=== PATIENT | female | born 1940 | race Two or more races ===

== ENCOUNTER 2024-12-07 12:49 | Outpatient (REF) | payer MEDICARE, MEDICAID, SELFPAY ==
--- OUTSIDE RECORDS SUMMARY | 2023-06-25 09:40 | XMS_ITS ---
Author Organization The [facility] in [place] Address [address] [place] [address] Care Team Providers Care Space Systems Operations Craftsman Name Role Phone Lizzie RUEDA, Jesse Primary Care Provid er Dae Renny Hatch Dae [phone] REASON FOR VISIT 4 wk ov, Chronic Kidney Disease, Stage 3b Encounters Encounter Location Date Provider Diagnosis [facility] [place] [address] [facility] [address] [place] [address] 06/25/2023 Renny Hatch Plan Of Treatment No Information Progress Notes * Carlee MOSER LDOB: 8 (84 yo F)Acc No.[id number]:06/25/2023 UNLOCKED PROGRESS NOTE Progress Note Patient: Carlee MART Provider: Patricia Hatch MD :1940 A ge:83 Y S ex:Female Date:06/25/2023 Address:[address] [place], [place] [id number] Pcp:Jesse Samuel MD Subjective: * Chief Complaints: * 1 . 4 wk ov. 2. Chronic Kidney Disease, Stage 3b. * HPI: G eneral: Last Visit: Hx obtained from the patient and her ECF records. Pt has trouble in her recall and is relatively poor historian. History: [facility] Pt reports rash on upper body and arms for 6 months, Pt reorts this rash is itching. Pt noted she does not have a PCP. Pt noted physician has not seen her in ECF for quite some time. PMH reviewed and added to medical records. Per records from ECF pt was sent by AGENCY MANAGER for [facility] of 1.3 and SK of 3.2. eGFR 39 ml/min. Last president of [facility] pt could recall is Darryl . Pt could not recall 03/17 event. Location: Kidneys Quality: Medical Kidney Disease Duration: Recently dxed Severity: Moderate Timing: On-going Known aggravating factors: Not known to patient Known relieving factors: Not known to patient Other: related problems Hx of NSAIDS: None Hx of Renal Stones: None Hx of Proteinuria: Not known to patient Hx of Hematuria: Not known to patient FH of kidney disease: None Chronic (current) Diseases Hx: See PMH/Reviewed/Updated. * Medical History: Objective: * Vitals: Assessment: Plan: * Treatment: * * Electronic signature of Renny Hatch MD, [id number] on 12/07/2024 at 12:54 PM EDT Sign off status: Pending Visit Status: R /S (Rescheduled) * Provider: Patricia Hatch MD Date: 1 08/26/2022 Generated for Denise bellamy/Chuckie/eTransmitting on: 0 12/07/2024 12:54 PM EDT
--- OUTSIDE RECORDS SUMMARY | 2023-08-27 10:20 | XMS_ITS ---
Author Organization [facility] in [place] Address [address] [place] [address] Care Team Providers Care Jigger Artisan Name Role Phone Lizzie RUEDA, Jesse Primary Care Provid er Unavailable Renny Hatch Unavailable [phone] REASON FOR VISIT 4 mo ov, Chronic Kidney Disease, Stage 3b Medications Medication SIG (Take, Route, Frequency, Duration) Notes Start Date End Date Status Famotidine 10 MG 1 tablet as needed Orally Twice a day Active Acetaminophen 325 MG 1 tablet as needed Orally every 4 hrs Active Aricept 10 MG 1 tablet at bedtime Orally Once a day for 30 day(s) Active amLODIPine Besylate 5 MG 1 tablet Orally Once a day for 30 day(s) Active Benzonatate 100 MG 1 capsule as needed Orally Three times a day Not-Taking hydrOXYzine HCl 25 MG 1 tablet as needed Orally BID Active Metoprolol Tartrate 25 MG 1 tablet with food Orally Twice a day for 30 day(s) Active Arnuity Ellipta 100 MCG/ACT 1 puff Inhalation Once a day Active fluvoxaMINE Maleate 50 MG 1 tablet at be dtime Orally BID Active Spironolactone 25 MG 1 tablet Orally for 30 day(s) Active Ondansetron HCl 4 MG 1 tablet Orally Onc e a day for 30 day(s) Active Saline Nasal Dundee 0.65 % as directed Nasally Active Robitussin DM 100-10 MG/5ML 10 mL as needed Orally every 4 hrs Not-Taking Ventolin HFA 108 (90 Base) MCG/ACT 1 puff as needed Inhalation every 4 hrs Active Senna 8.6 MG 2 tablets at bedtime as needed Orally Once a day for 30 day(s) Active Potassium Chloride ER 10 MEQ 1 tablet with food Orally Twice a day for 30 day(s) Active MiraLax 17 GM 1 packet mixed with 8 ounces of fluid Orally Once a day for 30 day(s) Active Melatonin 3 MG 1 capsule at bedtime as needed Orally Once a day for 30 day(s) Active Nitroglycerin 0.4 MG as directed Sublingual Active Mirtazapine 15 MG 1 tablet at bedtime Orally Once a day for 30 day(s) Active Fish Oil 500 MG 1 capsule Orally Twi ce a day for 30 day(s) Active Fluticasone Furoate 100 MCG/ACT 1 puff Inhalation Once a day Not-Taking Fleet Enema - as directed Rectal Not-Taking Loratadine 10 MG 1 tablet Orally Once a day for 30 day(s) Active Furosemide 20 MG 1 tablet Orally Once a day for 30 day(s) Active Social History Tobacco Use: Social History Observation Description Date Details (start date - stop date) Former Smoker NA - NA Tobacco Use/Smoking Question Answer Notes Patient is a former smoker How long has it been since you last smoked? > 10 years Section Notes: Pt reports she smoked one pa ck per week for several years and has quit several years ago Problems Problem Type SNOMED Code ICD Code Onset Dates Problem Status W/U Status Risk Notes Problem 31212875 Essential (primary) hypertension (I10) Active confirmed Problem 352826547 Paroxysmal atria l fibrillation (I48.0) Active confirmed Problem 571118840 Localized edema (R60.0) Active confirmed Vital Signs Weight 159 lb 8 oz lbs 08/27/2023 Height 5 ft 1 in in 08/27/2023 Blood pressure systolic 137 mm Hg 08/27/19 24 Blood pressure diastolic 79 mm Hg 024 Heart Rate 60 /min 08/27/2023 BMI 30.13 kg/m2 08/27/2023 Encounters Encounter Location Date Provider Diagnosis [facility] Nephrology [place] [address] [address] 08/27/2023 Renny Hatch Chronic kidney disease, stage 3b N18.32 ; Essential (primary) hypertension I10 ; Paroxysmal atrial fibrillation I48.0 and Localized edema R60.0 Assessments Encounter Date Diagnosis (ICD Code) Assessment Notes Treatment Notes Treatment Clinical Notes Section Notes 08/27/2023 Chronic kidney disease, stage 3b (ICD-10 - N18.32) 83 yo F with stable CKD 3b related to htn and cardiorenal factors Continue lasix and aldactone for volume control Continue daily KCl supplement BP today is controlled Continue metoprolol for rate control Continue Eliquis for CVA prevention Avoid NSAIDs and IV contrast Electrolytes and CBC are OK Check vit D level before her next visit, PTH is elevated with normal Ca and phos levels 08/27/2023 Essential (primary) hypertension (ICD-10 - I10) 08/27/2023 Paroxysmal atrial fibrillation (ICD-10 - I48.0) 08/27/2023 Localized edema (ICD-10 - R60.0) Plan Of Treatment Next Appt Details Follow Up: 6 Months, Reason: Progress Notes * ANNITA Carlee LDOB: (83 yo F)Acc No.[id number]:08/27/2023 Progress Note Patient: Carlee Donnelly Provider: Patricia Hatch MD :1940 A ge:83 Y S ex:Female Date:08/27/2023 Address:[address] [place] [address] Pcp:Anaya harp MD Check In:02:11 PM ESTCheck O ut:02:47 PM EST Subjective: * Chief Complaints: * 4 mo ovChronic Kidney Disease, Stage 3b * HPI: G eneral: 83 yo F with CKD 3b, here for office follow up. She has missed multiple appointments, last visit was in February, her new patient visit. Most recent Cr was in the CKD 3b range at 1.6, electrolytes were normal. Urine studies show mild albuminuria near 50 mg/g of Cr, no M-spike, and no hematuria. Her Hgb is good at 14.6, normal WBCs. Her PTH was elevated at 166, no recent vit D level available for review. Her renal US did not show any stones, hydronephrosis, or solid renal lesions. She follows with cardiology for her Afib, on lasix and spironolactone. * ROS: G eneral/Constitutional: Recent weight loss d enies. C hange in appetite d enies. C ardiovascular: PND d enies. O rthopnea d enies. S welling of legs, ankles, or feet a dmits. C hest pain d enies. S hortness of breath a dmits. G astrointestinal: Abdominal pain d enies. N ausea d enies. V omiting d enies. G enitourinary: Nocturia d enies. U rinary incontinence d enies. F requent UTI's d enies. R enal Colic ?denies. W eakstream d enies. D ysuria d enies . H ematuria d enies.?Blood in urine d enies. F requent urination d enies. M usculoskeletal: Joint stiffness d enies. W eakness d enies. ? N eurologic: Dizziness d enies. F ainting d enies. H eadache?denies. T ingling/Numbness d enies. * Active Problem List N18.9 Chronic kidney disea se Modified On:02/10/2023U Status:confirmed N18.32 Chronic kidney disea se, stage 3b Modified On:08/27/2023/U Status:confirmed I10 Essential (primary) hypertension Modified On:08/27/2023/U Status:confirmed I48.0 Paroxysmal atrial fi brillation Modified On:08/27/2023/U Status:confirmed R60.0 Localized edema Modified On:08/27/2023U Status:confirmed * Medical History: * Surgical History: B ack Surgery * Hospitalization/Major Diagno stic Procedure: N o Hospitalization History. * Family History: S ister(s): . F ather: diagnosed with Heart Disease. M other: diagnosed with Heart Disease. Pt had 3 pregnancies from her 1st marriage- 3 stillbirths Pt had 3 kids from her 2nd marriage. * Social History: T obacco Use: T obacco Use/Smoking P atsiddharth is a f ormer smoker, H ow long has it been since you last smoked? > 10 years. P t reports she smoked one pack per week for several years and has quit several years ago. * Medications: T akingAcetaminophen 325 MG Tablet 1 tablet as needed Orally every 4 hrsamLODIPine Besylate 5 MG Tablet 1 tablet Orally Once a dayAricept(Donepezil HCl) 10 MG Tablet 1 tablet at bedtime Orally Once a dayArnuity Ellipta(Fluticasone Furoate) 100 MCG/ACT Aerosol Powder Breath Activated 1 puff Inhalation Once a dayFamotidine 10 MG Tablet 1 tablet as needed Orally Twice a dayFish Oil 500 MG Capsule 1 capsule Orally Twice a dayfluvoxaMINE Maleate 50 MG Tablet 1 tablet at bedtime Orally BIDFurosemide 20 MG Tablet 1 tablet Orally Once a dayhydrOXYzine HCl 25 MG Tablet 1 tablet as needed Orally BIDLoratadine 10 MG Tablet 1 tablet Orally Once a dayMelatonin 3 MG Capsule 1 capsule at bedtime as needed Orally Once a dayMetoprolol Tartrate 25 MG Tablet 1 tablet with food Orally Twice a dayMiraLax(Polyethylene Glycol 3350) 17 GM Packet 1 packet mixed with 8 ounces of fluid Orally Once a dayMirtazapine 15 MG Tablet 1 tablet at bedtime Orally Once a dayNitroglycerin 0.4 MG Tablet Sublingual as directed Sublingual Ondansetron HCl 4 MG Tablet 1 tablet Orally Once a dayPotassium Chloride ER 10 MEQ Tablet Extended Release 1 tablet with food Orally Twice a daySaline Nasal Dundee 0.65 % Solution as directed Nasally Senna 8.6 MG Tablet 2 tablets at bedtime as needed Orally Once a daySpironolactone 25 MG Tablet 1 tablet Orally Ventolin HFA(Albuterol Sulfate HFA) 108 (90 Base) MCG/ACT Aerosol Solution 1 puff as needed Inhalation every 4 hrsTaking Acetaminophen 325 MG Tablet 1 tablet as needed Orally every 4 hrsTaking amLODIPine Besylate 5 MG Tablet 1 tablet Orally Once a dayTaking Aricept(Donepezil HCl) 10 MG Tablet 1 tablet at bedtime Orally Once a dayTaking Arnuity Ellipta(Fluticasone Furoate) 100 MCG/ACT Aerosol Powder Breath Activated 1 puff Inhalation Once a dayTaking Famotidine 10 MG Tablet 1 tablet as needed Orally Twice a dayTaking Fish Oil 500 MG Capsule 1 capsule Orally Twice a dayTaking fluvoxaMINE Maleate 50 MG Tablet 1 tablet at bedtime Orally BIDTaking Furosemide 20 MG Tablet 1 tablet Orally Once a dayTaking hydrOXYzine HCl 25 MG Tablet 1 tablet as needed Orally BIDTaking Loratadine 10 MG Tablet 1 tablet Orally Once a dayTaking Melatonin 3 MG Capsule 1 capsule at bedtime as needed Orally Once a dayTaking Metoprolol Tartrate 25 MG Tablet 1 tablet with food Orally Twice a dayTaking MiraLax(Polyethylene Glycol 3350) 17 GM Packet 1 packet mixed with 8 ounces of fluid Orally Once a dayTaking Mirtazapine 15 MG Tablet 1 tablet at bedtime Orally Once a dayTaking Nitroglycerin 0.4 MG Tablet Sublingual as directed Sublingual Taking Ondansetron HCl 4 MG Tablet 1 tablet Orally Once a dayTaking Potassium Chloride ER 10 MEQ Tablet Extended Release 1 tablet with food Orally Twice a dayTaking Saline Nasal Dundee 0.65 % Solution as directed Nasally Taking Senna 8.6 MG Tablet 2 tablets at bedtime as needed Orally Once a dayTaking Spironolactone 25 MG Tablet 1 tablet Orally Taking Ventolin HFA(Albuterol Sulfate HFA) 108 (90 Base) MCG/ACT Aerosol Solution 1 puff as needed Inhalation every 4 hrsNot-Taking/PRNBenzonatate 100 MG Capsule 1 capsule as needed Orally Three times a dayFleet Enema(Sodium Phosphates) - Enema as directed Rectal Fluticasone Furoate 100 MCG/ACT Aerosol Powder Breath Activated 1 puff Inhalation Once a dayRobitussin DM 100-10 MG/5ML Syrup 10 mL as needed Orally every 4 hrsMedication List reviewed and reconciled with the patientNot- Taking/PRN Benzonatate 100 MG Capsule 1 capsule as needed Orally Three times a dayNot- Taking/PRN Fleet Enema(Sodium Phosphates) - Enema as directed Rectal Not-Taking/PRN Fluticasone Furoate 100 MCG/ACT Aerosol Powder Breath Activated 1 puff Inhalation Once a dayNot-Taking/PRN Robitussin DM 100-10 MG/5ML Syrup 10 mL as needed Orally every 4 hrsMedication List reviewed and reconciled with the patient * Allergies: n o[Allergies Verified] Objective: * Vitals: W t: 159 lb 8 oz, Ht: 5 ft 1 in, BP: 137/79 mm Hg, HR: 60 /min, BMI:30.13 Index, Ht-cm: 154.94 cm, Wt-k.35 kg. * Examination: G eneral Examinations: GENERAL APPEARANCE: a wake, alert, oriented to person, well nourished, no pallor, memory loss issues. NECK: n ormal, no carotid bruit. LUNGS: c lear to auscultation bilaterally. CHEST: n ormal. CARDIO: n ormal, regular rate and rhythm, S1, S2 normal, no rub. ABDOMEN: s oft, nontender, nondistended, normal bowel sounds present. SKIN: g ood turgor. EXTREMITIES: n o clubbing, cyanosis, mild edema. NEUROLOGIC: n o focal deficit. Assessment: * Assessment: 1. C hronic kidney disease, stage 3b - N18.32 (Primary) 2 . E ssential (primary) hypertension - I10 3 . P aroxysmal atrial fibrillation - I48.0 4 . L ocalized edema - R60.0 Plan: * Treatment: * Recommended Wellness and Pre vention Guidelines: * S tatus A lert L ast Done N ext Due A ction Taken C OMPLIANT F all Risk Assessment 0 08/27/2023 0 08/27/2024 D ocumented structured data - Fall Risk Assessment: * Procedure Codes: * Preventive Medicine: Screenings/Counseling: F ALL RISK SCREENING F all Risk Assessment: N o falls in the past year, A re you afraid of falling? N o. T OBACCO ACTION PLAN P atient counselled on the dangers of tobacco use and urged to quit. N on-Smoker. * Follow Up: 6 Months * * Sign off status: Completed Visit Status: C HK (Check Out) true * Provider: Patricia Hatch MD Date: 0 08/27/2023 Generated for Denise bellamy/Chuckie/eTransmitting on: 0 12/07/2024 12:54 PM EDT History and Physical Notes * Examination Category Sub-Category Detail Notes Category Not es General Examinations GENERAL APPEARANCE: awake, alert, oriented to person, well nourished, no pallor, memory loss issues NECK: normal, no carotid b ruit CARDIO: normal, regular rate and rhythm, S1, S2 normal, no rub CHEST: normal LUNGS: clear to auscultatio n bilaterally ABDOMEN: soft, nontender, non distended, normal bowel sounds present NEUROLOGIC: no focal deficit SKIN: good turgor EXTREMITIES: no clubbing, cyanosi s, mild edema
--- OUTSIDE RECORDS SUMMARY | 2024-03-01 09:20 | XMS_ITS ---
Author Organization [facility] in [place] Address [address] [place] [address] Care Team Providers Care Instructional Facilitator Name Role Phone Lizzie RUEDA, Jesse Primary Care Provid er Dae MamieRenny [phone] REASON FOR VISIT CKD stage 3b, HTN Encounters Encounter Location Date Provider Diagnosis [facility] Nephrology [place] [address] [place] [address] 03/01/2024 Renny Hatch Plan Of Treatment No Information Progress Notes * Carlee MOSER LDOB: 8 (84 yo F)Acc No.[id number]:03/01/2024 UNLOCKED PROGRESS NOTE Progress Note Patient: Carlee MART Provider: Patricia Hatch MD :1940 A ge:84 Y S ex:Female Date:03/01/2024 Address:[address] [place], [place] [id number] Pcp:Jesse Samuel MD Subjective: * Chief Complaints: * 1 . CKD stage 3b. 2. HTN. * HPI: G eneral: 83 yo F [...] her Afib, on lasix and spironolactone. * Medical History: Objective: * Vitals: Assessment: Plan: * Treatment: * * Electronic signature of Renny Hatch MD, [id number] on 12/07/2024 at 12:53 PM EDT Sign off status: Pending Visit Status: N /S N/C (No Show/No Charge) * Provider: Patricia Hatch MD Date: 0 03/01/2024 Generated for Denise bellamy/Chuckie/Zuleymasmitting on: 12/07/2024 12:53 PM EDT
--- OUTSIDE RECORDS SUMMARY | 2024-11-07 20:00 | XMS_ITS | Continuity of Care Document ---
Author Organization [address] [place] [address] [address] [place] [address] Care Team Providers Care Rn Imcu Name Role Phone Adriano Wagner DPM Unavailable Unavailable Allergies, Adverse Reactions, Alerts Substance Reaction Status Criticality Xdgmuln-SZW-ShN Reductase Inhibitors Acti ve No Information PENTAZOCINE HCL Active No Informati on NALOXONE HCL Active No Information gemfibrozil Active No Information sulindac Active No Information atenolol Active No Information morphine Active No Information codeine Active No Information Medications Medication Instructions Dosage Effective Dates (start - stop) Status Comments prednisone 10 mg tablet - Ac tive amlodipine 5 mg tablet - Act jessica furosemide 20 mg tablet - Ac tive Eliquis 5 mg tablet - Active mirtazapine 15 mg tablet - Active hydroxyzine HCl 10 mg tablet - Active Arnuity Ellipta 100 mcg/actuation powder for inhalation - Active ivermectin 3 mg tablet - Act jessica albuterol sulfate HFA 90 mcg/actuation aerosol inhaler - Active potassium chloride ER 20 mEq tablet,extended release TAKE 1 TABLET BY MOUTH TWICE DAILY - Active Flovent HFA 44 mcg/actuation aerosol inhaler INHALE 2 PUFFS BY MOUTH TWICE DAILY - Active citalopram 40 mg tablet TAKE 1 TABLET BY MOUTH ONCE DAILY - Active metoprolol succinate ER 25 mg tablet,extended release 24 hr TAKE 1 TABLET BY MOUTH ONCE DAILY - Active spironolactone 100 mg tablet TAKE 1 TABLET BY MOUTH ONCE DAILY - Active tizanidine 2 mg tablet TAKE 1 TABLET BY MOUTH EVERY 8 HOURS NEEDED NOT TO EXCEED 3 TABLETS IN 24 HOURS - Active sotalol 120 mg tablet TAKE 1 TABLET BY MOUTH TWICE DAILY - Active warfarin 2.5 mg tablet TAKE 1 TABLET BY MOUTH ONCE DAILY DIRECTED BY JOBST MTCeci - Active acetaminophen 325 mg tablet - Active Procedures Procedure Date DEBRIDE NAIL 1-5 Trim Dystrophic nail(s) DEBRIDE NAIL 1-5 DETERMINE REFRACTIVE STATE FIT SPECTACLES BIFOCAL EYE EXAM WITH PHOTOS COMPRE OPH EXAM EST PT 1/> DEBRIDE NAIL 1-5 DEBRIDE NAIL 1-5 COMPREHENSVE ORAL EVALUATION INTRAOR COMPLETE FILM SERIES REPLACE DENTURE TEETH COMPLT DEBRIDE NAIL 1-5 NURSING FAC CARE SUBSEQ NURSING FAC CARE SUBSEQ Vision sv frames purchases FITTING OF SPECTACLES Lens sphcyl bifocal 4.00d/.1 EYE EXAM & TREATMENT DEBRIDE NAIL 1-5 NURSING FAC CARE SUBSEQ DEBRIDE NAIL 1-5 NURSING FAC CARE SUBSEQ DEBRIDE NAIL 1-5 NURSING FAC CARE SUBSEQ Limited Oral Evaluation-Problem Focused EYE EXAM NEW PATIENT Advance Directives Directive Yes / No Effective Date File Name No Information Encounters Encounter Description Practice Location Reason(s) For Visit Diagnoses Date Provider Providers Copied on Encounter [address] [place] [address], [address], [place], [place], [id number] , [facility] Other specified peripheral vascular diseasesTinea unguiumNail dystrophy Bernard Orr [place]. Referring Provider: Roberto Carlos Ayala. [facility] [address], [place], [place], [id number] , [facility] Other specified peripheral vascular diseasesTinea unguium 5 DAWIT Srivastava. Referring Provider: Roberto Carlos Ayala. [facility] [address], [place], [place], [id number] , [facility] No Information 5 DAWIT Srivastava. [facility] [address], [place], [place], [id number] , [facility] Presbyopia 5 Ron Lawson. [address] [facility], [address], [place], [place], [id number], . [phone] [facility] [address], [place], [place], [id number] , [facility] Macular degeneration followup (chief complaint) Endothelial corneal dystrophy, bilateralStra bismic amblyopia, right eyeNexdtve age-related mclr degn, right eye, early dry stage 5 Ron Lawson. [address] [facility], [address], [place], [place], [id number], . tel:[phone] Referring Provider: Roberto Carlos Ayala. [facility] [address], [place], [place], [id number] , [facility] Other specified peripheral vascular diseasesTinea unguium 4 [place]. Referring Provider: Roberto Carlos Ayala. [facility] [address], [place], [place], [id number] , [facility] Other specified peripheral vascular diseasesTinea unguium 4 [place]. Referring Provider: Roberto Carlos Ayala. [facility] [address], [place], [place], [id number] , [facility] Encounter for dental examination and cleaning without abnormal findingsEncou nter for fitting and adjustment of dental prosthetic device 3 DAWIT Moraes. Referring Provider: Roberto Carlos Ayala. NURSING FAC CARE SUBSEQ [facility] [address], [place], [place], [id number] , [facility] Other specified peripheral vascular diseasesTinea unguium Oct- 3 Fernleyjorge alberto Chauhan. . Referring Provider: Roberto Carlos Ayala. NURSING FAC CARE SUBSEQ [facility] [address], [place], [place], [id number] , [facility] ear care exam (chief complaint) Encounter for examination of ears and hearing without abnormal findings 3 Andrew Ramires [place]. Referring Provider: Roberto Carlos Ayala. [facility] [address], [place], [place], [id number] , [facility] Presbyopia 2 Ron Lawson. [address] [facility], [address], [place], [place], [address], . tel:[phone] [facility] [address], [place], [place], [id number] , [facility] amblyopia (chief complaint) Nexdtve age-related mclr degn, right eye, early dry stageStrabism ic amblyopia, right eyeEndothelia l corneal dystrophy, bilateral 2 [place] Renny. [address] [facility], [address], [place], [place], [address], . tel:[phone] Referring Provider: Roberto Carlos Ayala. NURSING FAC CARE SUBSEQ [facility] [address], [place], [place], [id number] , [facility] Tinea unguiumOther specified peripheral vascular diseases 2 Fernley Tien. . Referring Provider: Roberto Carlos Ayala. NURSING FAC CARE SUBSEQ [facility] [address], [place], [place], [id number] , [facility] Tinea unguiumOther specified peripheral vascular diseases 2 Fernley Tein. . Referring Provider: Roberto Carlos Ayala. NURSING FAC CARE SUBSEQ [facility] [address], [place], [place], [id number] , [facility] Tinea unguiumOther specified peripheral vascular diseases 2 Fernleyjorge alberto Chauhan. . Referring Provider: Roberto Carlos Ayala. [facility] [address], [place], [place], [id number] , [facility] Encounter for dental examination and cleaning without abnormal findings 2 Javed Martinez. [address] [facility], [address], [place], [place], [address], . tel:[phone] Referring Provider: Roberto Carlos Ayala. [facility] [address], [place], [place], [id number] [facility] Blurry vision (chief complaint) Nexdtve age-related mclr degn, right eye, early dry stageStrabism ic amblyopia, right eye 2 Ron Lawson. [address] [facility], [address], [place], [place], [address], . [phone] Referring Provider: Roberto Carlos Ayala. [facility] [address], [place], [place], [id number] , [facility] No Information 2 Ron Lawson. [address] [facility], [address], [place], [place], [id number], . [phone] Family History Family Member Type Diagnosis Age At Onset No Information Payers Payer name Insurance type Covered constitution party ID Authoriza tisuzette(s) Medicare Of [place] MB [id number] [employer] [place] [id number] Medicaid [facility] [id number] Social History Type Description Quantity Date Captured Comments Alcohol Use Details Unknown Caffeine Use Details Unknown Tobacco Use Status No Information Smoking Status No Information Sex Female Chief Complaint And Reason For Visit No Information Reason For Referral Reason For Referral No Information Plan Of Treatment Date Type Action Status Goal Influenza vaccine. Due on due Goal Unhealthy drug u se screening. Due on due Goal DEXA scan. Due on due Goal Td vaccine. Due on due Goal Tdap. Due on due Goal Tobacco screening. Due on due Goal Depression screening. Due on due Goal Zoster vaccine (1st). Due on due Goal Pneumococcal vaccine. Due on due Goal Depression screening. Due on due Goal Td vaccine. Due on due Goal Tdap. Due on due Goal DEXA scan. Due on due Goal Pneumococcal vaccine. Due on due Goal Zoster vaccine (). Due on due Goal Tobacco screening. Due on due Goal Unhealthy drug u se screening. Due on due Goal Influenza vaccine. Due on due Goal Pneumococcal vaccine. Due on due Goal Td vaccine. Due on due Goal Zoster vaccine (). Due on due Goal Unhealthy drug u se screening. Due on due Goal Tdap. Due on due Goal Influenza vaccine. Due on due Goal DEXA scan. Due on due Goal Depression screening. Due on due Goal Influenza vaccine. Due on due Goal Pneumococcal vaccine. Due on due Goal Depression screening. Due on due Goal DEXA scan. Due on 5 due Goal Zoster vaccine (). Due on due Goal Unhealthy drug u se screening. Due on due Goal Tdap. Due on due Goal Td vaccine. Due on due Goal Tdap. Due on due Goal Unhealthy drug u se screening. Due on due Goal Zoster vaccine (). Due on due Goal Pneumococcal vaccine. Due on due Goal DEXA scan. Due on due Goal Influenza vaccine. Due on due Goal Td vaccine. Due on due Goal Depression screening. Due on due Goal Pneumococcal vaccine. Due on due Goal DEXA scan. Due on due Goal Zoster vaccine (). Due on due Goal Depression screening. Due on due Goal Td vaccine. Due on due Goal Unhealthy drug u se screening. Due on due Goal Influenza vaccine. Due on due Goal Tdap. Due on due Goal Pneumococcal vaccine. Due on due Goal Influenza vaccine. Due on due Goal Td vaccine. Due on due Goal DEXA scan. Due on due Goal Zoster vaccine (1st). Due on due Goal Tdap. Due on due Goal Depression screening. Due on due Goal Influenza vaccine. Due on due Goal Zoster vaccine (1st). Due on due Goal DEXA scan. Due on due Goal Depression screening. Due on due Goal Pneumococcal vaccine. Due on due Goal Td vaccine. Due on due Goal Tdap. Due on due Goal Pneumococcal vaccine. Due on due Goal DEXA scan. Due on due Goal Tdap. Due on due Goal Depression screening. Due on due Goal Zoster vaccine (1st). Due on due Goal Influenza vaccine. Due on due Goal Td vaccine. Due on due Goal Depression screening. Due on due Goal Tdap. Due on due Goal Td vaccine. Due on due Goal DEXA scan. Due on due Goal Zoster vaccine (1st). Due on due Goal Pneumococcal vaccine. Due on due Goal Influenza vaccine. Due on due Goal Influenza vaccine. Due on due Goal DEXA scan. Due on 2 due Goal Tdap. Due on due Goal Zoster vaccine (1st). Due on due Goal Td vaccine. Due on due Goal Depression screening. Due on due Goal Pneumococcal vaccine. Due on due Goal Influenza vaccine. Due on due Goal Td vaccine. Due on due Goal Depression screening. Due on due Goal Pneumococcal vaccine. Due on due Goal DEXA scan. Due on due Goal Tdap. Due on due Goal Zoster vaccine (1st). Due on due Patient Education Learning About Dental Care and Your Health Problem completed History Of Present Illness Encounter Date Complaint History Of Prese nt Illness Macular degeneration followup Th e 84 year old patient presents for evaluation of Macular degeneration followup in the right eye. mild, constant, > 6 months amblyopia The 82 year old female presents for evaluation of amblyopia in the right eye. severe, constant, > 6 months Blurry vision The 81 year old female presents for evaluation of Blurry vision in the right > left. moderate, constant, > 6 months Functional Status Date Functional Assessmen t No Information Instructions Date Instruction Additional Infor mation All of the thickened or mycotic nails described were debrided to prevent pain and infection. The nails were debrided using a rotary tool and nail nipper. Related to Tinea unguium All dystrophic nails were reduced in length as needed to prevent pain and other symptoms. Related to Nail dystrophy All of the thickened or mycotic nails described were debrided to prevent pain and infection. The nails were debrided using a rotary tool and nail nipper. Related to Tinea unguium Impression/Plan - co rneal haze, appears stable, will update glasses. Monitor Related to Endothelial corneal dystrophy, bilateral Impression/Plan - lo ngstanding and stable. 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 progression is mild. monitor Related to Nexdtve age-related mclr degn, right eye, early dry stage Follow up - Return i n 6-9 months for dilated fundus exam. All of the thickened or mycotic nails described were debrided to prevent pain and infection. The nails were debrided using a rotary tool and nail nipper. Related to Tinea unguium All of the thickened or mycotic nails described were debrided to prevent pain and infection. The nails were debrided using a rotary tool and nail nipper. Related to Tinea unguium All of the mycotic n ails described were debrided utilizing nail nippers and/or dremel in both length and thickness as needed to a tolerable level. Patient tolerated the procedure well. Related to Tinea unguium no cerumen noted beverly aterally. Follow up prn. Related to Encounter for examination of ears and hearing without abnormal findings Follow up - Return i n 6-9 months for dilated fundus exam. Impression/Plan - mi ld corneal opacities OU, will update RX, monitor for progression. Related to Endothelial corneal dystrophy, bilateral Impression/Plan - po or vision right eye, amblyopia is longstanding. 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 Related to Nexdtve age-related mclr degn, right eye, early dry stage All of the mycotic n ails described were debrided utilizing nail nippers and/or dremel in both length and thickness as needed to a tolerable level. Patient tolerated the procedure well. Related to Tinea unguium Instructed to monito r feet and legs daily for any open sores. Educated on signs and symptoms of infection and instructed to call or go to ER if present. Related to Other specified peripheral vascular diseases All of the mycotic n ails described were debrided utilizing nail nippers and/or dremel in both length and thickness as needed to a tolerable level. Patient tolerated the procedure well. Related to Tinea unguium Instructed to monito r feet and legs daily for any open sores. Educated on signs and symptoms of infection and instructed to call or go to ER if present. Related to Other specified peripheral vascular diseases All of the mycotic n ails described were debrided utilizing nail nippers and/or dremel in both length and thickness as needed to a tolerable level. Patient tolerated the procedure well. Related to Tinea unguium Instructed to monito r feet and legs daily for any open sores. Educated on signs and symptoms of infection and instructed to call or go to ER if present. Related to Other specified peripheral vascular diseases Follow up - Return i n 6-9 months for dilated fundus exam. 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 monitor Related to Nexdtve age-related mclr degn, right eye, early dry stage Assessments Type Assessment Date assessment Other specified peripheral vascu lar diseases assessment Tinea unguium assessment Nail dystrophy Patient Care Teams Name Effective Dates (start - stop) Status Members No Information
--- OUTSIDE RECORDS SUMMARY | 2024-12-07 12:53 | XMS_ITS | Patient Health Record ---
Author Organization [facility] in [place] Address [address] [place] [address] Care Team Providers Care Electronics Engineering Manager Name Role Phone Lizzie RUEDA, Jesse Primary Care Provid er Unavailable Renny Hatch Unavailable [phone] Allergies No Known Allergies Reason For Referral No Information Medications Medication SIG (Take, Route, Frequency, Duration) Notes Start Date End Date Status Arnuity Ellipta 100 MCG/ACT 1 puff Inhalation Once a day Active fluvoxaMINE Maleate 50 MG 1 tablet at be dtime Orally BID Active Acetaminophen 325 MG 1 tablet as needed Orally every 4 hrs Active Spironolactone 25 MG 1 tablet Orally for 30 day(s) Active Aricept 10 MG 1 tablet at bedtime Orally Once a day for 30 day(s) Active amLODIPine Besylate 5 MG 1 tablet Orally Once a day for 30 day(s) Active Benzonatate 100 MG 1 capsule as needed Orally Three times a day Not-Taking Fish Oil 500 MG 1 capsule Orally Twi ce a day for 30 day(s) Active Famotidine 10 MG 1 tablet as needed Orally Twice a day Active Fluticasone Furoate 100 MCG/ACT 1 puff Inhalation Once a day Not-Taking Fleet Enema - as directed Rectal Not-Taking Loratadine 10 MG 1 tablet Orally Once a day for 30 day(s) Active Furosemide 20 MG 1 tablet Orally Once a day for 30 day(s) Active MiraLax [...] Twice a day for 30 day(s) Active Ondansetron HCl 4 MG 1 tablet Orally Onc e a day for 30 day(s) Active Saline Nasal [place] 0.65 % as directed Nasally Active Robitussin DM 100-10 MG/5ML 10 mL as needed Orally every 4 hrs Not-Taking hydrOXYzine HCl 25 MG 1 tablet as needed Orally BID Active Ventolin HFA 108 (90 Base) MCG/ACT 1 puff as needed Inhalation every 4 hrs Active Metoprolol Tartrate 25 MG 1 tablet with food Orally Twice a day for 30 day(s) Active Senna 8.6 MG 2 tablets at [...] years and has quit several years ago Pt reports she smoked one pa ck per week for several years and has quit several years ago Problems Problem Type SNOMED Code ICD Code Onset Dates Problem Status W/U Status Risk Notes Problem 06087550 Essential (primary) hypertension (I10) Active confirmed Problem 697286410 Paroxysmal atria l fibrillation (I48.0) Active confirmed Problem 284419190 Localized edema (R60.0) Active confirmed Problem Chronic kidney disease (N18.9) Active confirmed Problem 430303009 Chronic kidney disease, stage 3b (N18.32) Active confirmed Plan Of Treatment Future Test Test Name Order Date UA (URINALYSIS, COMPLETE) 02/18/2023 IMMUNOFIXATION-SIEP, BLOOD (SEP,IGAM,IFI X) 02/18/2023 MICROALBUMIN with ALB/CREAT RATIO, URINE (MALB)) 02/18/2023 PTH INTACT (PARATHYROID HORMONE) 023 IMMUNOELECTROPHORESIS, RANDOM URINE (UIE P) 02/18/2023 MAGNESIUM 02/18/2023 ULTRASOUND RENAL 02/18/2023 BASIC METABOLIC PROFILE WITH GFR 023 CBC W/AUTO DIFF 02/18/2023 Insurance Providers Payer Name Payer Address Payer Phone Subscriber Number Group Number Insured Name Patient Relationship to Insured Coverage Start Date Coverage End Date [place] [address] [place] [address] [id number] Carlee Moser Self - patient is the insured 3 [place] 2ND [place] [address] [place] OF [place], [place] [id number] Carlee Moser Self - patient is the insured 8 Medical (General) History Medical History History ICD Code CHF, Chronic PPM Anxiety Depression HTN PAF Asthma Anticoagulants Peptic Ulcer Disease-Hx of Cronary Artery Disease (CAP/PCI) Surgical History Surgery Date(Month/Year) Back Surgery
--- OUTSIDE RECORDS SUMMARY | 2024-12-07 12:53 | XMS_ITS | Clinical Summary ---
Author Organization [facility] Address [address] [place] [address] Care Team Providers Care Short Order Fry Cook Name Role Phone Unavailable Primary Care Provider Unavailabl e Allergies Active Allergy Reactions Criticality Noted Date Comments Ezetimibe 02/24/2023 Other Reaction(s): vision changes Other 04/17/2017 Oxycodone-Acetaminophen 02/24/2023 Other Reaction(s): constipation Pentazocine 04/17/2017 Other Reaction(s): heart races Sulindac 04/17/2017 Medications amLODIPine (Norvasc) 5 MG tablet Take 5 mg by mouth in the morning. Active Eliquis 5 MG tablet 3 Active donepezil (Aricept) 10 MG tablet 3 Active donepezil (Aricept) 5 MG tablet 3 Active albuterol HFA 90 mcg/act inhaler 3 Active cephalexin (Keflex) 500 MG capsule 3 Active fluticasone furoate (Arnuity Ellipta) 100 MCG/ACT inhaler Inhale 1 puff in the morning. Active furosemide (Lasix) 20 MG tablet 3 Active furosemide (Lasix) 40 MG tablet take 0.5 tablet by ORAL route every day Oral Active loratadine (Claritin) 10 MG tablet Take 10 mg by mouth in the morning. Active melatonin 3 MG tablet Take by mouth at bedtime. Active mirtazapine (Remeron) 15 MG tablet 3 Active mirtazapine (Remeron) 7.5 MG tablet 3 Active omega-3 1000 MG capsule capsule Take 1 capsule by mouth in the morning and 1 capsule at noon and 1 capsule in the evening. Active potassium chloride CR (Klor-Con M10) 10 MEQ ER tablet 3 Active Docusate Sodium (DSS) 100 MG capsule Take 100 mg by mouth in the morning and 100 mg in the evening. Active triamcinolone (Kenalog) 0.1 % creamIndications :Rash and other nonspecific skin eruption Apply thin layer to affected areas on the body twice a day as needed for flares 454 g 1 3 Active ivermectin (Stromectol) 3 MG tabletIndication s:Scabies Take 5 pills all together, repeat in 1 week 10 tablet 3 Active Active Problems No known active problems Encounters Date Type Department Care Team Description 09/14/2024 Abstract [facility] [address] [place] [address] Unallocated, [place] MD Dash from Last 3 Months Family History Medical History Relation Name Comments Asthma Other Heart disease Other Hypertension Other Relation Name Status Comments Father Mother Other Social History Tobacco Use Types Packs/Day Years Used Date Smoking Tobacco: Former Cigarettes Tobacco Cessation:Counseling Given: Not Answered Alcohol Use Standard Drinks/Week Comments Never 0 (1 standard drink = 0.6 oz pur e alcohol) Comments Unknown Sex and Gender Information Value Date Recorded Sex Assigned at Not on file Legal Sex Female 6:38 PM EDT Gender Identity Not on file Sexual Orientation Not on file Last Filed Vital Signs Vital Sign Reading Time Taken Comments Blood Pressure - - Pulse - - Temperature - - Respiratory Rate - - Oxygen Saturation - - Inhaled Oxygen Concentration - - Weight 68.9 kg (152 lb) 10/24/2023 10:12 AM EDT Height 149.9 cm (4' 11 ) 10/24/2023 10:12 AM EDT Body Mass Index 30.7 10/24/2023 10:12 AM EDT Plan of Treatment Not on file Insurance [place]ARE [place]
--- OUTSIDE RECORDS SUMMARY | 2024-12-07 12:53 | XMS_ITS | Encounter Summary ---
Author Organization [employer] Address [facility] [id number] [address] [place] [address] Care Team Providers Care Manager Control Name Role Phone Roberto Carlos Ayala MD Primary Care Provider [phone] Encounter Details Date Type Department Care Team (Late st Contact Info) Description 12/25/2020 Telephone [facility] [address] [facility] [place] [address] Raffy Lomeli MD [address]. Provider retired 10/05/24 [place] [address] Social History Tobacco Use Types Packs/Day Years Used Date Smoking Tobacco: Former Smokeless Tobacco: Never Alcohol Use Standard Drinks/Week Comments No 0 (1 standard drink = 0.6 oz pur e alcohol) PHQ-2 Answer Date Recorded Total Score 3 12/29/2020 Childcare Answer Date Recorded Childcare Unknown 12/07/2018 Employment Answer Date Recorded Employment Unknown 12/07/2018 Purpose - Life Answer Date Recorded Purpose and direction in life Unknown Comments No Sex and Gender Information Value Date Recorded Sex Assigned at Not on file Legal Sex Female 11:22 AM EDT Gender Identity Not on file Sexual Orientation Not on file COVID-19 Exposure Response Date Recorded In the last month, have you been in contact with someone who was confirmed or suspected to have Coronavirus / COVID-19? No / Unsure 12/22/2020 6:28 PM EDT documented as of this encounter Miscellaneous Notes * Telephone Encounter - Raffy Lomeli MD - 12/25/2020 7:49 AM EDT Does pt need ER f/u? documented in this encounter Plan of Treatment Not on file documented as of this encounter Visit Diagnoses Not on filedocumented in this encounter Additional Health Concerns Infection Onset Date Last Indicated Resolved Time COVID-19 Rule-Out 05/10/2021 05/10/2021 05/10/2021 4:44 PM EDT COVID-19 Positive Comment:10 days post infection, here for SNF placement/asymptomatic 05/10/2021 05/16/2021 8:44 AM EST Assessment Noted Time PHQ-9 Depression Total Score: 3 09/12/19 21 3:00 PM EST A Body Mass Index follow-up plan has been documented for the patient 05/14/2019 3:17 PM EST documented as of this encounter Care Teams Manager Control Relationship Specialty Start Date End Date Roberto [place] [address] [place] [address] PCP - General Family Medicine 08/23/21 documented as of this encounter
--- OUTSIDE RECORDS SUMMARY | 2024-12-07 12:53 | XMS_ITS | Encounter Summary ---
Author Organization [facility] Address [address] [facility] [address] Care Team Providers Care Acid Tank Liner Name Role Phone Christine Aviles ELECTRICAL SYSTEMS DESIGNER Unavailable [phone] Encounter Details Date Type Department Care Team (Late st Contact Info) Description 09/14/2024 Abstract [facility] [address] [facility] [address] [place] [id number] Unallocated, Noms Provider, [address] [place], [place] [id number] Social History Tobacco Use Types Packs/Day Years Used Date Smoking Tobacco: Former Cigarettes Alcohol Use Standard Drinks/Week Comments Never 0 (1 standard drink = 0.6 oz pur e alcohol) Comments Unknown Sex and Gender Information Value Date Recorded Sex Assigned at Not on file Legal Sex Female 6:38 PM EDT Gender Identity Not on file Sexual Orientation Not on file documented as of this encounter Plan of Treatment Not on file documented as of this encounter Visit Diagnoses Not on filedocumented in this encounter Care Teams Acid Tank Liner Relationship Specialty Start Date End Date Christine Aviles, ELECTRICAL SYSTEMS DESIGNER [address] [facility] [address] [place], [place] [id number] PCP - ACO Reach 08/20/24 10/07/24 documented as of this encounter
--- OUTSIDE RECORDS SUMMARY | 2024-12-07 12:53 | XMS_ITS | Clinical Summary ---
Author Organization [employer] Address [facility] [place]-[id number] [address] [place] [address] Care Team Providers Care Demolition Expert Name Role Phone Roberto Carlos Ayala MD Primary Care Provider [phone] Allergies Active Allergy Reactions Criticality Noted Date Comments Atenolol 03/22/2015 Other reaction(s): Intolerance-unknown Sulindac 04/17/2017 Codeine 03/22/2015 Other reaction(s): Intolerance-unknown Ezetimibe 02/24/2023 Other Reaction(s): vision changes Gemfibrozil 04/17/2017 Morphine 12/05/2021 Morphine Sulfate 04/17/2017 Naloxone Hcl 12/05/2021 Other 04/17/2017 Statins other than Vytorin Oxycodone-Acetaminophen 02/24/2023 Other Reaction(s): constipation Pentazocine 04/17/2017 Other Reaction(s): heart races Oxycodone Yvt-Zkhsxrcqc-Yhz 04/17/2017 Mawgxqu-Frf-Dih Reductase Inhibitors 12/05/2021 Pentazocine Lactate 04/17/2017 Medications omega 2-qhs-bsm-fish oil (FISH OIL) 1,000 mg (120 mg-180 mg) capsule Take 1 capsule by mouth 3 (three) times a day. Active docusate sodium (COLACE) 100 mg capsule Take 1 capsule (100 mg total) by mouth in the morning and 1 capsule (100 mg total) before bedtime. Active nitroglycerin (NITROSTAT) 0.[address] 1 tablet (0.4 mg total) under the tongue every 5 (five) minutes as needed (prn). 25 tablet 3 8 Active famotidine (PEPCID) 20 mg tablet Take 1 tablet (20 mg total) by mouth 2 (two) times a day. 120 tablet 9 Active Additional Information Patient taking differently:20 mg oralDaily, Reported on 09/14/2024 VENTOLIN HFA 90 mcg/actuation inhaler INHALE 2 PUFFS BY MOUTH EVERY 6 HOURS NEEDED FOR WHEEZING 18 g 5 1 Active acetaminophen (TYLENOL) 325 mg tablet Take 2 tablets (650 mg total) by mouth every 6 (six) hours as needed for pain, headaches or fever. 30 tablet 1 Active amLODIPine (NORVASC) 5 mg tablet Take 1 tablet (5 mg total) by mouth in the morning. Active fluticasone furoate (ARNUITY ELLIPTA) 100 mcg/actuation blister with device Inhale 1 puff in the morning. Active melatonin (CIRCADIN) tablet Take by mouth nightly. Active furosemide (LASIX) 20 mg tablet Take 1 tablet (20 mg total) by mouth daily. 30 tablet 11 2 Active Additional Information Patient taking differently:20 mg oral2 times daily, Reported on 09/14/2024 apixaban (ELIQUIS) 5 mg tablet Take 1 tablet (5 mg total) by mouth in the morning and 1 tablet (5 mg total) before bedtime. Restart 02/01/22 evening dose. 2 Active donepeziL (ARICEPT) 10 mg tablet Take 1 tablet (10 mg total) by mouth nightly. 3 Active fluvoxaMINE (LUVOX) 50 mg tablet Take 1 tablet (50 mg total) by mouth in the morning and 1 tablet (50 mg total) before bedtime. 3 Active potassium chloride (KLOR-CON M 10) 10 MEQ CR tablet Take 1 tablet (10 mEq total) by mouth in the morning. 3 Active spironolactone (ALDACTONE) 25 mg tablet Take 1 tablet (25 mg total) by mouth in the morning. 3 Active mirtazapine (REMERON) 15 mg tablet Take 0.5 tablets (7.5 mg total) by mouth nightly. 3 Active polyethylene glycol (GLYCOLAX) 17 gram packet Take 17 g by mouth in the morning. Active sennosides 8.6 mg capsule Take 2 capsules by mouth in the morning and 2 capsules before bedtime. Active dapagliflozin propanediol (FARXIGA) 5 mg tablet Take 1 tablet (5 mg total) by mouth in the morning. 5 Active hydrOXYzine (ATARAX) 25 mg tablet Take 1 tablet (25 mg total) by mouth every 8 (eight) hours as needed for itching. 5 Active metoprolol tartrate (LOPRESSOR) 25 mg tablet Take 1 tablet (25 mg total) by mouth in the morning and 1 tablet (25 mg total) before bedtime. 5 Active Active Problems Problem Noted Date Diagnosed Date Depression 05/18/2021 Memory impairment 05/18/2021 COVID-19 virus infection 05/18/2021 General weakness 05/17/2021 Unable to care for self 05/17/2021 Stable angina pectoris 11/12/2018 Atypical atrial flutter 06/10/2018 Typical atrial flutter 02/04/2018 Palpitations 02/04/2018 Overview (02/04/2018): Added automatically from request for surgery [id number] Sinus node arrhythmia 02/04/2018 Overview (02/04/2018): Added automatically from request for surgery [id number] Dyspnea 02/04/2018 Overview (02/04/2018): Added automatically from request for surgery [id number] Pacemaker lead malfunction 12/17/2017 SSS (sick sinus syndrome) 12/17/2017 Overview (12/17/2017): Added automatically from request for surgery [id number] Moderate persistent asthma without complication 12/16/2017 Hypertension 11/06/2017 CHF (congestive heart failure) 10/17/2017 PUD (peptic ulcer disease) 05/09/2017 Paroxysmal atrial fibrillation 05/29/2016 keno terminal operator current use of anticoagulant therapy 1 07/29/2015 Chest pain 08/04/2015 Sinoatrial node dysfunction 10/14/2009 Presence of cardiac pacemaker [facility] 0 Status post percutaneous transluminal coronary a ngioplasty 03/10/2009 Hyperlipidemia 02/01/2006 Resolved Problems Problem Noted Date Diagnosed Date Resolved Date Severe obesity (BMI 35.0-39. 9) with comorbidity 12/08/2018 05/14/2019 Encounters Date Type Department Care Team Description 09/14/2024 9:00 AM EDT Office Visit [facility] [address] [place] [phone] Henry Malik, PRINT PRESS OPERATOR-MINERALOGY PROFESSOR Presence of cardiac pacemaker (Primary Dx); Sinoatrial node dysfunction (CMS-HCC); Paroxysmal atrial fibrillation (CMS-HCC); Atypical atrial flutter (CMS-HCC); Status post percutaneous transluminal coronary angioplasty 09/14/2024 8:30 AM EDT Clinical Support [facility] [address] [place] [address] cardiac pacemaker [facility] (Primary Dx) 09/14/2024 Orders Only [facility] [address] [place] [address] Kim Peralta Presence of cardiac pacemaker 09/14/2024 Travel 09/13/2024 Telephone [facility] [address] [place] [address] Nella Ga CMA from Last 3 Months Immunizations Immunization Administration Dates Next Due Pneumococcal Polysaccharide 09/08/2014 Family History Medical History Relation Name Comments Coronary artery disease Father Hypertension Father Asthma Mother Hypertension Mother Relation Name Status Comments Father Mother Social History Tobacco Use Types Packs/Day Years Used Date Smoking Tobacco: Former Smokeless Tobacco: Never Tobacco Cessation:Counseling Given: Not Answered Alcohol Use Standard Drinks/Week Comments No 0 [...] Sign Reading Time Taken Comments Blood Pressure 124/76 09/14/2024 8:43 AM EDT Pulse 68 09/14/2024 8:43 AM EDT Temperature 36.8 C (98.2 F) 08/23/2021 12:14 PM EST Respiratory Rate 15 01/31/2022 2:35 PM EDT Oxygen Saturation 98% 09/14/2024 8:43 AM EDT Inhaled Oxygen Concentration - - Weight 64 kg (141 lb) 09/14/2024 8:43 AM EDT Height 149.9 cm (4' 11 ) 09/14/2024 8:43 AM EDT Body Mass Index 28.48 09/14/2024 8:43 AM EDT Plan of Treatment Health Maintenance Due Date Last Done Comments Depression Screening 1950 DTaP,Tdap and Td Vaccines (1 - Tdap) 1957 Zoster (Shingles) Vaccine (1 of 2) 01/30/1988 Fall Risk Screening 2003 Influenza Vaccine 03/07/2025 Tobacco Screening 09/14/2025 09/14/2024 Goals Goal Patient Goal Type Associated Problems Recent Progress Patient-Stated? Author [facility]DC home placement. General Yes Angely Weaver LSW Note: Evaluation of progress towards goal: In progress: Skilled placement at [facility] on 05/25/21. Medical Devices Implanted Type Area Infrastructure Engineer Device Identifier Shelf Expiration Date Model / Serial / Lot Lead Pcng 52cm 6fr Ecrdm Tndrl Sts Bp Actfx Is-1 Cnct Xtd Ti - [id number] - [id number] Implanted:Qty: 1 on 01/31/2022 by Dionisio Haskins MD at [facility] Implant Lead Left: Chest [facility] MED CARDIAC RHYTHM MGT 10/04/2024 [id number] / [id number] / Pcmkr Assurity Sjm Rf Home Monitoring Repl [id number] - [id number] - [id number] Implanted:Qty: 1 on 01/20/2018 by Maldonado Bryant DO at [facility] Pacemaker Left: Chest [facility] CHANDRA MED CARDIAC RHYTHM MGT 03/06/2019 [id number] / [id number] / Pacemaker Assurity [address] [place] Home Monitoring [facility] [id number] - [id number] - [id number] Implanted:Qty: 1 on 01/31/2022 by Dionisio Haskins MD at [facility] Pacemaker Left: Chest [employer] CHANDRA MED CARDIAC RHYTHM MGT 12/04/2022 [id number] / [id number] / Procedures Procedure Name Priority Date/Time Associated Diagnosis Comments MO REM INTERROG PM/LDLS PM <90 D PHYS/QHP Routine 11/09/2024 3:00 AM EDT DEVICE INTERROGATION Routine 09/14/2024 Presence of cardiac pacemaker from Last 3 Months Results * Remote Device Check (11/09/2024 3:00 AM EDT) Anatomical Region Laterality Modality Other 11/09/2024 3:00 AM EDT Yosvany Royal MD HEALTH MAINTENANCE Final Result * Device Interrogation (09/14/2024) Anatomical Region Laterality Modality Other Henry Malik PRINT PRESS OPERATOR-MINERALOGY PROFESSOR CV CARDIAC SERVICES OR DERABLES Final Result from Last 3 Months Insurance MEDICARE [facility] [place] [id number] Advance Directives Documents on File Type Date Recorded Patient Stereotype Caster Agata pickens Living Will 12/01/2018 3:48 PM LIVING [place] Durable Power of Black Top Machine Operator 12/01/2018 3:48 PM HEALTHCARE POA * DNR Comfort Care Arrest (DNR-CCA) [place] (Latest Code Status on File) Date Activated Date Inactivated Comments 05/22/2021 4:15 PM 05/25/2021 2:24 PM * DNR Comfort Care (DNRCC) [place] Date Activated Date Inactivated Comments 05/22/2021 4:12 PM 05/22/2021 4:15 PM * Full Code Date Activated Date Inactivated Comments 05/21/2021 8:04 AM 05/22/2021 4:12 PM * Full Code Date Activated Date Inactivated Comments 01/20/2018 12:15 PM 01/20/2018 6:05 PM Care Teams Demolition Expert Relationship Specialty Start Date End Date Roberto Carlos [place] [address] [place] [address] PCP - General Family Medicine 08/23/21
--- OUTSIDE RECORDS SUMMARY | 2024-12-07 12:53 | XMS_ITS | Encounter Summary ---
Author Organization [employer] Address [facility] [place]-[id number] [address] [place] [address] Care Team Providers Care Design Cell Engineer Name Role Phone Roberto Carlos Ayala MD Primary Care Provider [phone] Reason for Visit * Reason Onset Date Comments Med Refill 11/17/2020 Encounter Details Date Type Department Care Team (Late st Contact Info) Description 11/17/2020 Refill [facility] [address] [place] [phone] Marilou Gautam, JUHI Med Refill Social History Tobacco Use Types Packs/Day Years Used Date Smoking Tobacco: Former Smokeless Tobacco: Never Alcohol Use Standard Drinks/Week Comments No 0 (1 standard drink = 0.6 oz pur e alcohol) PHQ-2 Answer Date Recorded Total Score 3 09/11/2020 Childcare Answer Date Recorded Childcare Unknown 12/07/2018 [...] have Coronavirus / COVID-19? No / Unsure 11/20/2020 2:30 PM EDT documented as of this encounter Miscellaneous Notes * Telephone Encounter - HILDA Sam - 11/17/2020 9:54 AM EDT Needs mag and updated EKG documented in this encounter Plan of Treatment [...] documented as of this encounter Care Teams Design Cell Engineer Relationship Specialty Start Date End Date Roberto Carlos Ayala MD [facility] [place] [address] [address] PCP - General Family Medicine 08/23/21 documented as of this encounter
--- OUTSIDE RECORDS SUMMARY | 2024-12-07 12:53 | XMS_ITS | Encounter Summary ---
Author Organization [facility] Address [address] [facility] [place] [address] Care Team Providers Care Photocomposing Keyboard Operator Name Role Phone Christine Aviles CHOCOLATE COATER Unavailable [phone] Christine Aviles CHOCOLATE COATER Unavailable [phone] Christine Aviles CHOCOLATE COATER Unavailable [phone] Encounter Details Date Type Department Care Team (Late st Contact Info) Description 06/04/2023 Abstract [facility] [address] [facility] [address] [place] [phone] Roberto Carlos Ayala MD [address] [facility] [address] [place] [address] Social History Tobacco Use Types Packs/Day Years [...] on filedocumented in this encounter Care Teams Photocomposing Keyboard Operator Relationship Specialty Start Date End Date Christine Aviles CHOCOLATE COATER [address] [facility] [address] [place] [address] PCP - ACO Reach 04/05/23 09/04/23 Christine Aviles CHOCOLATE COATER [address] [facility] [address] [place] [address] PCP - ACO Reach 11/05/23 08/12/24 Christine Aviles, SAMI [address] [place] [address] PCP - ACO Reach 08/20/24 10/07/24 documented as of this encounter
--- OUTSIDE RECORDS SUMMARY | 2024-12-07 12:54 | XMS_ITS | Encounter Summary ---
Author Organization [facility] Address [facility] [place]-[id number] [address] [place] [address] Care Team Providers Care Nanny/Household Manager Name Role Phone Roberto Carlos Ayala MD Primary Care Provider [phone] Encounter Details Date Type Department Care Team (Late st Contact Info) Description 04/18/2021 Orders Only [facility] [address] [place] [phone] External, Scanning Provider Social History Tobacco Use Types Packs/Day Years [...] have Coronavirus / COVID-19? No / Unsure 04/18/2021 10:06 AM EDT documented as of this encounter Plan of Treatment Not on file documented as of this encounter Procedures Procedure Name Priority Date/Time Associated Diagnosis Comments DEVICE INTERROGATION Routine 04/18/2021 documented in this encounter Results * Device Interrogation (04/18/2021) Anatomical Region Laterality Modality Other us Scanning Provider External CV CARDIAC SERVICES O RDERABLES Final Result documented in this encounter Visit Diagnoses Not on filedocumented in this encounter Additional Health Concerns Infection Onset Date Last Indicated Resolved Time COVID-19 Rule-Out 05/10/2021 05/10/2021 05/10/2021 4:44 PM EDT COVID-19 Positive Comment:10 days post infection, here for SNF placement/asymptomatic 05/10/2021 05/16/2021 8:44 AM EST Assessment Noted Time PHQ-9 Depression Total Score: 3 12/30/19 21 4:00 PM EDT A Body Mass Index follow-up plan has been documented for the patient 05/14/2019 3:17 PM EST documented as of this encounter Care Teams Nanny/Household Manager Relationship Specialty Start Date End Date Roberto Carlos Ayala MD [facility] [place] [address] PCP - General Family Medicine 08/23/21 documented as of this encounter
--- OUTSIDE RECORDS SUMMARY | 2024-12-07 12:54 | XMS_ITS | Encounter Summary ---
Author Organization [employer] Address [facility]-[id number] [address] [place] [address] Care Team Providers Care Tieing Machine Operator Name Role Phone Roberto Carlos Ayala MD Primary Care Provider Encounter Details Date Type Department Care Team (Late st Contact Info) Description 05/15/2021 Telephone [facility] [address] [facility] [place] [address] Raffy Lomeli MD [address]. Provider retired 10/05/24 [place] [address] Social History Tobacco Use Types Packs/Day Years [...] or suspected to have Coronavirus / COVID-19? Yes 05/18/2021 8:37 PM EST documented as of this encounter Functional Status documented as of this encounter Mental Status * Question Answer Entry Date Author Overall Cognitive Status X 05/17/2021 11:46 AM EST Makeda Rangel, PT documented in this encounter Miscellaneous Notes * Telephone Encounter - Raffy Lomeli MD - 05/15/2021 7:34 AM EST Pt with denial of HH due to lack of facedoes she wish to move appt up 05/22? documented in this encounter Plan of Treatment Not on file documented as of this encounter Visit Diagnoses Not on filedocumented in this encounter Additional Health Concerns Infection Onset Date Last Indicated Resolved Time COVID-19 Positive Comment:10 days post infection, here for SNF placement/asymptomatic 05/10/2021 05/16/2021 8:44 AM EST Assessment Noted Time PHQ-9 Depression Total Score: 3 12/30/19 21 4:00 PM EDT A Body Mass Index follow-up plan has been documented for the patient 05/14/2019 3:17 PM EST documented as of this encounter Care Teams Tieing Machine Operator Relationship Specialty Start Date End Date Roberto [place] [address] PCP - General Family Medicine 08/23/21 documented as of this encounter
--- OUTSIDE RECORDS SUMMARY | 2024-12-07 12:54 | XMS_ITS | Encounter Summary ---
Author Organization [facility] Address [facility] [place]-[id number] [address] [place] [address] Care Team Providers Care Plant Wire Chief Name Role Phone Roberto Carlos Ayala MD Primary Care Provider [phone] Encounter Details Date Type Department Care Team (Late st Contact Info) Description 04/04/2021 [facility]phone [facility] [address] [place] [phone] Delvin Caballero CNA Social History Tobacco Use Types Packs/Day Years [...] have Coronavirus / COVID-19? No / Unsure 03/26/2021 8:19 PM EDT documented as of this encounter Miscellaneous Notes * Telephone Encounter - Delvin Caballero CMA - 04/04/2021 1:44 PM EDT Patient calling requesting order for home health. Patient is unable to come into the office due to lack of transportation, but she feels she needs a nurse to come in. I told her I cannot promise homehealth will be able to see her without a face-face visit but she still wants to try to see if she can try it. Can you please put referral in for home health? If this does not work we can talk to Tori to see what other options we can try * Telephone Encounter - Raffy Lomeli MD - 04/04/2021 1:44 PM EDT Order in documented in this encounter Plan of Treatment Not on file documented as of this encounter Visit Diagnoses Diagnosis Chronic systolic congestive heart failure (CMS-HCC)- Primary Other depression documented in this encounter Additional Health Concerns Infection [...] documented as of this encounter Care Teams Plant Wire Chief Relationship Specialty Start Date End Date [place] [address] [place] [address] PCP - General Family Medicine 08/23/21 documented as of this encounter
--- OUTSIDE RECORDS SUMMARY | 2024-12-07 12:54 | XMS_ITS | Encounter Summary ---
Author Organization [facility] Address [facility] [place]-[id number] [address] [place] [address] Care Team Providers Care Clinical Psychologist Name Role Phone Roberto Carlos Ayala MD Primary Care Provider Reason for Visit * Reason Comments Med Refill Encounter Details Date Type Department Care Team (Late st Contact Info) Description 03/19/2021 Refill [facility] [address] [facility] [place] [phone] Deidre Bejarano, TOP CLOSER-ACCREDITATION MANAGER [address] [place] [address] Med Refill Social History Tobacco Use Types [...] have Coronavirus / COVID-19? No / Unsure 02/23/2021 2:33 PM EDT documented as of this encounter Miscellaneous Notes * Telephone Encounter - Kinza You LPN - 03/19/2021 3:03 PM EDT Pt needs to make and keep appointment, 02/24 misty pt no showed documented in this encounter Plan of Treatment [...] documented as of this encounter Care Teams Clinical Psychologist Relationship Specialty Start Date End Date Roberto [place] [address] [place] [address] PCP - General Family Medicine 08/23/21 documented as of this encounter
--- OUTSIDE RECORDS SUMMARY | 2024-12-07 12:54 | XMS_ITS | Encounter Summary ---
Author Organization [facility] [employer] [facility] [employer] Address [facility] [place]-[id number] [address] [place] [address] Care Team Providers Care Cigar Wrapper Tender Automatic Name Role Phone Roberto Carlos Ayala MD Primary Care Provider [phone] Encounter Details Date Type Department Care Team (Late st Contact Info) Description 05/11/2020 Orders Only [facility] [address] [place] [phone] External, Scanning Provider Social History Tobacco Use Types Packs/Day Years Used Date Smoking Tobacco: Former Smokeless Tobacco: Never Alcohol Use Standard Drinks/Week Comments No 0 (1 standard drink = 0.6 oz pur e alcohol) PHQ-2 Answer Date Recorded PHQ-2 Score 2 03/10/2020 Childcare Answer Date Recorded Childcare Unknown 12/07/2018 Employment Answer Date Recorded Employment Unknown 12/07/2018 Comments No Sex and Gender Information Value Date Recorded Sex Assigned at Not on file Legal Sex Female 11:22 AM EDT Gender Identity Not on file Sexual Orientation Not on file COVID-19 Exposure Response Date Recorded In the last month, have you been in contact with someone who was confirmed or suspected to have Coronavirus / COVID-19? No / Unsure 05/10/2020 10:17 AM EST documented as of this encounter Plan of Treatment Not on file documented as of this encounter Procedures Procedure Name Priority Date/Time Associated Diagnosis Comments DEVICE INTERROGATION Routine 05/10/2020 documented in this encounter Results * Device Interrogation (05/10/2020) Anatomical Region Laterality Modality Other us Scanning Provider External CV CARDIAC SERVICES O RDERABLES Final Result documented in this encounter Visit Diagnoses Not on filedocumented in this encounter Additional Health Concerns Infection Onset Date Last Indicated Resolved Time COVID-19 Rule-Out 08/18/2020 08/18/2020 08/19/2020 1:25 AM EST COVID-19 Rule-Out 05/10/2021 05/10/2021 05/10/2021 4:44 PM EDT COVID-19 Positive Comment:10 days post infection, here for SNF placement/asymptomatic 05/10/2021 05/16/2021 8:44 AM EST Assessment Noted Time PHQ-9 Depression Total Score: 2 03/10/20 4:00 PM EDT A Body Mass Index follow-up plan has been documented for the patient 05/14/2019 3:17 PM EST documented as of this encounter Care Teams Cigar Wrapper Tender Automatic Relationship Specialty Start Date End Date Roberto [place] [address] [place] [address] PCP - General Family Medicine 08/23/21 documented as of this encounter
--- OUTSIDE RECORDS SUMMARY | 2024-12-07 12:54 | XMS_ITS | Encounter Summary ---
Author Organization [employer] Address [facility] [id number] [address] [place] [address] Care Team Providers Care Equity Sales Assistant Name Role Phone Roberto Carlos Ayala MD Primary Care Provider [phone] Encounter Details Date Type Department Care Team (Late st Contact Info) Description 11/01/2021 Orders Only [facility] [address] [facility] [address] [phone] External, Scanning Provider Social History Tobacco Use [...] Exposure Response Date Recorded In the last 10 days, have yo u been in contact with someone who was confirmed or suspected to have Coronavirus/COVID-19? No / Unsure 10/31/2021 2:39 PM EDT documented as of this encounter Plan of Treatment Not on file documented as of this encounter Goals Goal Patient Goal Type Associated Problems Recent Progress Patient-Stated? Author long term home placement. General Yes Angely Weaver LSW Note: Evaluation of progress towards goal: In progress: Skilled placement at [facility] on 05/25/21. documented as of this encounter Procedures Procedure Name Priority Date/Time Associated Diagnosis Comments DEVICE INTERROGATION Routine 10/31/2021 documented in this encounter Results * Device Interrogation (10/31/2021) Anatomical Region Laterality Modality Other us Scanning Provider External CV CARDIAC SERVICES O RDERABLES Final Result documented in this encounter Visit Diagnoses Not on filedocumented in this encounter Additional Health Concerns Assessment Noted Time PHQ-9 Depression Total Score: 3 12/30/19 21 4:00 PM EDT A Body Mass Index follow-up plan has been documented for the patient 05/14/2019 3:17 PM EST documented as of this encounter Care Teams Equity Sales Assistant Relationship Specialty Start Date End Date Roberto [place] [address] [place] [address] PCP - General Family Medicine 08/23/21 documented as of this encounter
--- OUTSIDE RECORDS SUMMARY | 2024-12-07 12:54 | XMS_ITS | Encounter Summary ---
Author Organization [facility] [employer] Address [facility] [place][id number] [address] [place] [address] Care Team Providers Care Insert Molding Operator Name Role Phone Roberto Carlos Ayala MD Primary Care Provider [phone] Reason for Visit * Reason Comments Med Refill Encounter Details Date Type Department Care Team (Late st Contact Info) Description 05/13/2019 Refill [facility] [address] [phone] Raffy Lomeli MD [address]. Provider retired 10/05/24 [place], [place] [id number] Social History Tobacco Use Types Packs/Day Years Used Date Smoking Tobacco: Former Smokeless Tobacco: Never Alcohol Use Standard Drinks/Week Comments No 0 (1 standard drink = 0.6 oz pur e alcohol) PHQ-2 Answer Date Recorded PHQ-2 Score 0 05/14/2019 Childcare Answer Date Recorded Childcare Unknown 12/07/2018 [...] Assessment Noted Time PHQ-9 Depression Total Score: 9 11/13/19 19 4:00 PM EDT A Body Mass Index follow-up plan has been documented for the patient 11/06/2017 1:25 PM EDT documented as of this encounter Care Teams Insert Molding Operator Relationship Specialty Start Date End Date Roberto [place] [address] [place] [address] PCP - General Family Medicine 08/23/21 documented as of this encounter
--- OUTSIDE RECORDS SUMMARY | 2024-12-07 12:54 | XMS_ITS | Encounter Summary ---
Author Organization [employer] Address [facility] [place]-[id number] [address] [place] [address] Care Team Providers Care Salesperson Neckties Name Role Phone Roberto Carlos Ayala MD Primary Care Provider [phone] Encounter Details Date Type Department Care Team (Late st Contact Info) Description 12/25/2020 [facility] [address] [place] [address] Sabine Salomon CMA Social History Tobacco Use Types Packs/Day Years [...] encounter Miscellaneous Notes * Telephone Encounter - Sabine Salomon CMA - 12/25/2020 10:58 AM EDT FYI Patient called and said that she fell on Friday, injuring her shoulder. She went to urgent care andthey said that she would need to get an XRAY done at the hospital since they do not have an xray machine there. They gave her the order and she went to the hospital but waited an extremely long time and ended up leaving before she was done. She was very frustrated that she wasn't taken care of at areasonable time. I offered her an appointment for Friday since she is still having shoulder painand she declined due to being home alone and not able to take a shower. I also told her I could seeif Dr. Woodward could send in another xray as it may get done faster since it's the week day and she also declined that as well. She said she will just continue to rest her arm and will call if she needs something. documented in this encounter Plan of Treatment [...] documented as of this encounter Care Teams Salesperson Neckties Relationship Specialty Start Date End Date Roberto Carlos [place] [address] [place] [address] PCP - General Family Medicine 08/23/21 documented as of this encounter
--- OUTSIDE RECORDS SUMMARY | 2024-12-07 12:54 | XMS_ITS | Encounter Summary ---
Author Organization [employer] Sys [employer] Address [facility]-[id number] [address] [place] [address] Care Team Providers Care Pmo Consultant Name Role Phone Roberto Carlos Ayala MD Primary Care Provider [phone] Encounter Details Date Type Department Care Team (Late st Contact Info) Description 01/09/2022 Orders Only [facility] [address] [place] [address] Richi Mesa MD Social History Tobacco Use Types Packs/Day Years [...] have Coronavirus / COVID-19? No / Unsure 01/09/2022 10:04 AM EDT documented as of this encounter Plan of Treatment Not on file documented as of this encounter Goals Goal Patient Goal Type Associated Problems Recent Progress Patient-Stated? Author [facility] home placement. General Yes Angely Weaver LSW Note: Evaluation of progress towards goal: In progress: Skilled placement at [facility] on 05/25/21. documented as of this encounter Procedures Procedure Name Priority Date/Time Associated Diagnosis Comments DEVICE INTERROGATION Routine 01/09/2022 2:52 PM EDT documented in this encounter Visit Diagnoses Not on filedocumented in this encounter Additional Health Concerns Assessment Noted Time PHQ-9 Depression Total Score: 3 12/30/19 4:00 PM EDT A Body Mass Index follow-up plan has been documented for the patient 05/14/2019 3:17 PM EST documented as of this encounter Care Teams Pmo Consultant Relationship Specialty Start Date End Date Roberto [place] [address] [place] [address] PCP - General Family Medicine 08/23/21 documented as of this encounter
--- OUTSIDE RECORDS SUMMARY | 2024-12-07 12:54 | XMS_ITS | Encounter Summary ---
Author Organization [facility] [employer] [facility] Address [facility] [place]-[id number] [address] [place] [address] Care Team Providers Care Hand Carver Name Role Phone Roberto Carlos Ayala MD Primary Care Provider [phone] Encounter Details Date Type Department Care Team (Late st Contact Info) Description 05/14/2021 [facility]phone [facility] [address] [facility] [place] [place] [phone] Qiana Lindo LPN Social History Tobacco Use Types Packs/Day Years [...] suspected to have Coronavirus / COVID-19? Yes 05/17/2021 11:33 AM EST documented as of this encounter Functional Status documented as of this encounter Mental Status * Question Answer Entry Date Author Overall Cognitive Status X 05/17/2021 11:46 AM EST Makeda Rangel PT documented in this encounter Miscellaneous Notes * Telephone Encounter - Qiana Lindo LPN - 05/14/2021 3:26 PM EST Called patient at the request of Ever, patient states she cannot get out and needs help around thehouse. I told her I would ask you if there was anything you can do to help her and told her I wouldcall her tomorrow when you got in. She says she doesn't know what do do and wants to . * Telephone Encounter - Raffy Lomeli MD - 05/14/2021 3:26 PM EST We are requesting face to face appt so we can arrange home health for her, please offer to arrange documented in this encounter Plan of Treatment [...] documented as of this encounter Care Teams Hand Carver Relationship Specialty Start Date End Date Roberto Carlos Ayala MD [facility] [place] [address] PCP - General Family Medicine 08/23/21 documented as of this encounter
--- OUTSIDE RECORDS SUMMARY | 2024-12-07 12:54 | XMS_ITS | Encounter Summary ---
Author Organization [facility] Address [facility]-[id number] [address] [place] [address] Care Team Providers Care Quantitative Consultant Name Role Phone Roberto Carlos Ayala MD Primary Care Provider [phone] Reason for Visit * Reason Comments Med Refill Encounter Details Date Type Department Care Team (Late st Contact Info) Description 03/13/2020 Refill [facility] [address] [facility] [address] [place] [phone] Francisco Prabhakar, DO [address] [place] [address] Med Refill Social History Tobacco Use Types [...] have Coronavirus / COVID-19? No / Unsure 03/16/2020 12:32 PM EDT documented as of this encounter [...] Time PHQ-9 Depression Total Score: 2 03/10/20 20 4:00 PM EDT A Body Mass Index follow-up plan has been documented for the patient 05/14/2019 3:17 PM EST documented as of this encounter Care Teams Quantitative Consultant Relationship Specialty Start Date End Date Roberto Carlos Ayala MD [facility] [place] [address] PCP - General Family Medicine 08/23/21 documented as of this encounter
--- OUTSIDE RECORDS SUMMARY | 2024-12-07 12:54 | XMS_ITS | Encounter Summary ---
Author Organization [employer] Address [facility] [place]-[id number] [address] [place] [address] Care Team Providers Care Gm Name Role Phone Roberto Carlos Ayala MD Primary Care Provider [phone] Encounter Details Date Type Department Care Team (Late st Contact Info) Description 08/23/2021 Telephone [facility] [address] [place] [address] Destiny Farah, JUHI Social History Tobacco Use Types Packs/Day Years [...] have Coronavirus / COVID-19? No / Unsure 08/23/2021 11:11 AM EST documented as of this encounter Miscellaneous Notes * Telephone Encounter - Destiny Farah RN - 08/23/2021 1:10 PM EST ----- Message from Dionisio Haskins MD sent at 08/23/2021 1:07 PM EST ----- Please schedule this patient for RV with me and device check at [facility] in 3 months - thx! documented in this encounter Plan of Treatment Not on file documented as of this encounter Goals Goal Patient Goal Type Associated Problems Recent Progress Patient-Stated? Author group home home placement. General Yes Angely Weaver LSW Note: Evaluation of progress towards goal: In progress: Skilled placement at [facility] on 05/25/21. documented as of this encounter Visit Diagnoses Not on filedocumented in this encounter Additional Health Concerns Assessment Noted Time PHQ-9 Depression Total Score: 3 12/30/19 21 4:00 PM EDT A Body Mass Index follow-up plan has been documented for the patient 05/14/2019 3:17 PM EST documented as of this encounter Care Teams Gm Relationship Specialty Start Date End Date Roberto Carlos Ayala MD [facility] [place] [address] PCP - General Family Medicine 08/23/21 documented as of this encounter
--- OUTSIDE RECORDS SUMMARY | 2024-12-07 12:54 | XMS_ITS | Encounter Summary ---
Author Organization [employer] Address [facility]-[id number] [address] [place] [address] Care Team Providers Care Business Management Professor Name Role Phone Roberto Carlos Ayala MD Primary Care Provider [phone] Encounter Details Date Type Department Care Team (Late st Contact Info) Description 05/14/2021 [facility]phone [facility] [address] [place] [phone] Aby Camacho RN Social History Tobacco Use Types Packs/Day Years [...] encounter Miscellaneous Notes * Telephone Encounter - Aby Camacho RN - 05/14/2021 4:32 PM EST [facility] calls with concerns about pt verbalizing suicidal ideation-pt in ED now documented in this encounter Plan of Treatment [...] documented as of this encounter Care Teams Business Management Professor Relationship Specialty Start Date End Date Roberto [place] [address] [place] [address] PCP - General Family Medicine 08/23/21 documented as of this encounter
--- OUTSIDE RECORDS SUMMARY | 2024-12-07 12:54 | XMS_ITS | Encounter Summary ---
Author Organization [employer] Address [facility]-[id number] [address] [place] [address] Care Team Providers Care Java Application Engineer Name Role Phone Roberto Carlos Ayala MD Primary Care Provider [phone] Encounter Details Date Type Department Care Team (Late st Contact Info) Description 06/03/2023 [facility]phone [facility] [address] [place] [phone] Kelsey Mandujano CMA Social History Tobacco Use Types Packs/Day [...] Type Associated Problems Recent Progress Patient-Stated? Author longterm home placement. General Yes Angely Weaver LSW Note: Evaluation of progress towards goal: In progress: Skilled placement at [facility] on 05/25/21. documented as of this encounter Visit Diagnoses Not on filedocumented in this encounter Additional Health Concerns Assessment Noted Time PHQ-9 Depression Total Score: 3 12/30/19 21 4:00 PM EDT A Body Mass Index follow-up plan has been documented for the patient 05/14/2019 3:17 PM EST documented as of this encounter Care Teams Java Application Engineer Relationship Specialty Start Date End Date Roberto Carlos Ayala MD [place] [address] PCP - General Family Medicine 08/23/21 documented as of this encounter
--- OUTSIDE RECORDS SUMMARY | 2024-12-07 12:54 | XMS_ITS | Encounter Summary ---
Author Organization [facility] Address [facility][id number] [address] [place] [address] Care Team Providers Care Leguillon Debeader Name Role Phone Roberto Carlos Ayala MD Primary Care Provider [phone] Encounter Details Date Type Department Care Team (Late st Contact Info) Description 01/17/2021 Orders Only [facility] [address] [facility] [place] [phone] Qiana Lindo LPN Acute pain of right shoulder Social History Tobacco Use Types Packs/Day Years [...] have Coronavirus / COVID-19? No / Unsure 01/18/2021 2:15 PM EDT documented as of this encounter Plan of Treatment Not on file documented as of this encounter Procedures Procedure Name Priority Date/Time Associated Diagnosis Comments AMB REFERRAL TO ORTHOPEDIC SURGERY Routine 01/15/2021 Acute pain of right shoulder documented in this encounter Results * Ambulatory referral to Orthopedic Surgery (01/15/2021) 01/15/2021 us Raffy Lomeli MD OUTPATIENT REFERRAL ORDERABL ES Final Result MANUALLY TRANSCRIBED RESULTS documented in this encounter Visit Diagnoses Diagnosis Acute pain of right shoulder documented in this encounter Additional Health Concerns [...] documented as of this encounter Care Teams Leguillon Debeader Relationship Specialty Start Date End Date Roberto [place] [address] [place] [address] PCP - General Family Medicine 08/23/21 documented as of this encounter
--- OUTSIDE RECORDS SUMMARY | 2024-12-07 12:54 | XMS_ITS | Encounter Summary ---
Author Organization [facility] [employer] Address [facility] [place]-[id number] [address] [place] [address] Care Team Providers Care Circuit Board Drafter Name Role Phone Roberto Carlos Ayala MD Primary Care Provider [phone] Encounter Details Date Type Department Care Team (Late st Contact Info) Description 04/09/2021 [facility]phone [facility] [address] [facility] [place] [place] [phone] Sabine Salomon CMA Social History Tobacco Use [...] Telephone Encounter - Sabine Salomon CMA - 04/09/2021 8:50 AM EDT [facility] called and said that they will be unable to accept patient for home care as she does not have a face to face. Patient is unable to come in due to lack of transportation. Any suggestions? * Telephone Encounter - Raffy Lomeli MD - 04/09/2021 8:50 AM EDT We need a face to face please explain this to pt and tell her that we will see her when she can getinto office * Telephone Encounter - Sabine Salomon CMA - 04/09/2021 8:50 AM EDT Called patient, she stated that she is unable to come in because her son was in a car accident and does not have a car. She said that home health called her last week and said that someone would comeout today or tomorrow to evaluate her, I told her that unfortunately they made a mistake and that they will not see her without a face to face appointment as Medicare will not cover HH without one. Sh naa told me she doesn't care for our rules, I apologized and I told her that once she has transportation we can bring her in, she then proceeded to say that she probably won't be doing that because shedoes not like the way we operate and then hung up on me. documented in this encounter Plan of Treatment [...] Noted Time PHQ-9 Depression Total Score: 3 12/29/ 21 4:00 PM EDT A Body Mass Index follow-up plan has been documented for the patient 05/14/2019 3:17 PM EST documented as of this encounter Care Teams Circuit Board Drafter Relationship Specialty Start Date End Date Roberto Carlos Ayala MD [facility] [place] [address] PCP - General Family Medicine 08/23/21 documented as of this encounter
--- OUTSIDE RECORDS SUMMARY | 2024-12-07 12:54 | XMS_ITS | Encounter Summary ---
Author Organization [employer] s tem Address [facility] [place]-[id number] [address] [place] [address] Care Team Providers Care Tour Manager Name Role Phone Roberto Carlos Ayala MD Primary Care Provider [phone] Encounter Details Date Type Department Care Team (Late st Contact Info) Description 07/12/2020 [facility]phone [facility] [address] [facility] [place] [phone] Sabine Salomon CMA Social History Tobacco Use Types Packs/Day Years Used Date Smoking Tobacco: Former Smokeless Tobacco: Never Alcohol Use Standard Drinks/Week Comments No 0 (1 standard drink = 0.6 oz pur e alcohol) PHQ-2 Answer Date Recorded PHQ-2 Score 3 07/13/2020 Childcare Answer Date Recorded Childcare Unknown 12/07/2018 [...] have Coronavirus / COVID-19? No / Unsure 07/13/2020 2:52 PM EST documented as of this encounter Miscellaneous Notes * Telephone Encounter - Sabine Salomon CMA - 07/12/2020 9:52 AM EST Patient called and c/o cough, runny nose and eye pain. Denies fever, SOB, has not been tested for COVID. She would like to be seen.. Please advise * Telephone Encounter - Raffy Lomeli MD - 07/12/2020 9:52 AM EST ok for appt documented in this encounter Plan of Treatment [...] documented as of this encounter Care Teams Tour Manager Relationship Specialty Start Date [place] [address] PCP - General Family Medicine 08/23/21 documented as of this encounter
--- OUTSIDE RECORDS SUMMARY | 2024-12-07 12:54 | XMS_ITS | Encounter Summary ---
Author Organization [facility] Address [facility]-[id number] [address] [place] [address] Care Team Providers Care Child Welfare Worker Name Role Phone Roberto Carlos Ayala MD Primary Care Provider [phone] Encounter Details Date Type Department Care Team (Late st Contact Info) Description 05/14/2021 [facility]phone [facility] [address] [facility] [place] [phone] Sabine Salomon CMA Social History Tobacco Use [...] Telephone Encounter - Sabine Salomon CMA - 05/14/2021 2:34 PM EST Leni [facility] called stating that patient has made suicidal comments to her. She states that she doesn't want to be here, she wishes she was , and isn't taking her medications. I reached out to MARIANNE Jackson to see if she would be able to assist patient with any needs as Dr. Woodward is currently out of the office. [facility] did say that they will reach out to [facility] to see if they can do a wellcheck on patient. Did advise that patient is positive for COVID as of 05/10/2021 documented in this encounter Plan of Treatment [...] documented as of this encounter Care Teams Child Welfare Worker Relationship Specialty Start Date End Date Roberto Carlos Ayala MD [facility] [place] [address] PCP - General Family Medicine 08/23/21 documented as of this encounter
--- OUTSIDE RECORDS SUMMARY | 2024-12-07 12:55 | XMS_ITS | Encounter Summary ---
Author Organization [employer] [facility] tem Address [facility] [id number] [address] [place] [address] Care Team Providers Care Councilman Name Role Phone Roberto Carlos Ayala MD Primary Care Provider Encounter Details Date Type Department Care Team (Late st Contact Info) Description 09/14/2024 Orders Only [facility] Cardiology [address] [place] [phone] Kim Peralta Presence of cardiac pacemaker Social History Tobacco Use Types Packs/Day Years [...] Type Associated Problems Recent Progress Patient-Stated? Author snf home placement. General Yes Angely Weaver LSW Note: Evaluation of progress towards goal: In progress: Skilled placement at [facility] on 05/25/21. documented as of this encounter Procedures Procedure Name Priority Date/Time Associated Diagnosis Comments DEVICE INTERROGATION Routine 09/14/2024 Presence of cardiac pacemaker documented in this encounter Results * Device Interrogation (09/14/2024) Anatomical Region Laterality Modality Other Henry Malik ASSISTANT GOLF COACH-KEY MAKER CV CARDIAC SERVICES OR DERABLES Final Result documented in this encounter Visit Diagnoses Diagnosis Presence of cardiac pacemaker Cardiac pacemaker in situ documented in this encounter Additional Health Concerns Assessment Noted Time PHQ-9 Depression Total Score: 3 12/30/19 21 4:00 PM EDT A Body Mass Index follow-up plan has been documented for the patient 05/14/2019 3:17 PM EST documented as of this encounter Care Teams Councilman Relationship Specialty Start Date End Date Roberto [place] [address] [place] [address] PCP - General Family Medicine 08/23/21 documented as of this encounter
--- OUTSIDE RECORDS SUMMARY | 2024-12-07 12:55 | XMS_ITS | Encounter Summary ---
Author Organization [facility] [employer] [facility] Address [facility] [id number] [address] [place] [address] Care Team Providers Care Disability Aide Name Role Phone Roberto Carlos Ayala MD Primary Care Provider [phone] Reason for Visit * Reason Onset Date Comments Med Refill 05/25/2018 Encounter Details Date Type Department Care Team (Late st Contact Info) Description 05/25/2018 Refill [facility] [address] [place] [phone] Qiana Lindo LPN Social History Tobacco Use Types Packs/Day Years Used Date Smoking Tobacco: Former Smokeless Tobacco: Never Alcohol Use Standard Drinks/Week Comments No 0 (1 standard drink = 0.6 oz pur e alcohol) Comments No Sex and Gender Information Value [...] Assessment Noted Time PHQ-9 Depression Total Score: 8 03/06/20 18 2:00 PM EDT A Body Mass Index follow-up plan has been documented for the patient 11/06/2017 1:25 PM EDT documented as of this encounter Care Teams Disability Aide Relationship Specialty Start Date End Date Roberto Carlos Ayala MD [facility] [address] PCP - General Family Medicine 08/23/21 documented as of this encounter
--- OUTSIDE RECORDS SUMMARY | 2024-12-07 12:55 | XMS_ITS | Encounter Summary ---
Author Organization [employer] [facility] tem Address [facility] [id number] [address] [place] [address] Care Team Providers Care Claim Rep Name Role Phone Roberto Carlos Ayala MD Primary Care Provider [phone] Encounter Details Date Type Department Care Team (Late st Contact Info) Description 06/04/2023 Orders Only [facility] [address] [place] [phone] Ros Olivares, FLOUR BLENDER HELPER-MIXING AND MOLDING MACHINE OPERATOR [address] [place] [address]ence of cardiac pacemaker [facility] Social History Tobacco Use Types Packs/Day Years [...] Type Associated Problems Recent Progress Patient-Stated? Author senior living home placement. General Yes Angely Weaver LSW Note: Evaluation of progress towards goal: In progress: Skilled placement at [facility] on 05/25/21. documented as of this encounter Procedures Procedure Name Priority Date/Time Associated Diagnosis Comments DEVICE INTERROGATION Routine 06/04/2023 Presence of cardiac pacemaker [facility] documented in this encounter Results * Device Interrogation (06/04/2023) Anatomical Region Laterality Modality Other us Ros Olivares APRN-MIXING AND MOLDING MACHINE OPERATOR CV CARDIAC SERV ICES ORDERABLES Final Result documented in this encounter Visit Diagnoses Diagnosis Presence of cardiac pacemaker [facility] Cardiac pacemaker in situ documented in this encounter Additional Health Concerns Assessment Noted Time PHQ-9 Depression Total Score: 3 12/30/19 21 4:00 PM EDT A Body Mass Index follow-up plan has been documented for the patient 05/14/2019 3:17 PM EST documented as of this encounter Care Teams Claim Rep Relationship Specialty Start Date End Date Roberto [place] [address] [place] [address] PCP - General Family Medicine 08/23/21 documented as of this encounter
--- OUTSIDE RECORDS SUMMARY | 2024-12-07 12:55 | XMS_ITS | Encounter Summary ---
Author Organization [facility] tem Address [facility] [id number] [address] [place] [address] Care Team Providers Care Solid Waste Disposal Manager Name Role Phone Roberto Carlos Ayala MD Primary Care Provider [phone] Reason for Visit * Reason Comments Med Refill Encounter Details Date Type Department Care Team (Late st Contact Info) Description 06/08/2018 Refill [facility] [address] [place] [phone] Vivian Ayala, JUHI [address] [place] [address] Med Refill Social History Tobacco Use Types [...] documented as of this encounter Care Teams Solid Waste Disposal Manager Relationship Specialty Start Date End Date Roberto Carlos Ayala MD [facility] [address] PCP - General Family Medicine 08/23/21 documented as of this encounter
--- OUTSIDE RECORDS SUMMARY | 2024-12-07 12:55 | XMS_ITS | Clinical Summary ---
Author Organization [facility] Address [address] [place] [address] Care Team Providers Care Director Of Product Management Name Role Phone Unavailable Primary Care Provider Unavailabl e Social History Tobacco Use Types Packs/Day Years Used Date Smoking Tobacco: Never Assessed Comments Unknown Sex and Gender Information Value Date Recorded Sex Assigned at Not on file Legal Sex Female 6:26 PM EST Gender Identity Not on file Sexual Orientation Not on file Plan of Treatment Not on file
--- OUTSIDE RECORDS SUMMARY | 2024-12-07 12:55 | XMS_ITS | Encounter Summary ---
Author Organization [facility] tem Address [facility] [id number] [address] [place] [address] Care Team Providers Care Salesman/Owner Name Role Phone Roberto Carlos Ayala MD Primary Care Provider [phone] Encounter Details Date Type Department Care Team (Late st Contact Info) Description 11/12/2016 Telephone [facility] [address] [place] [phone] [facility] [address] [place] [phone] Social History Tobacco Use Types Packs/Day Years [...] SNF placement/asymptomatic 05/10/2021 05/16/2021 8:44 AM EST documented as of this encounter Care Teams Salesman/Owner Relationship Specialty Start Date End Date Roberto Carlos [place] [place] [address] PCP - General Family Medicine 08/23/21 documented as of this encounter
[2024-12-07 13:15] LABS: Basophils Absolute Auto 0.1 10^3/uL (0.0-0.1); Basophils Percent Auto 0.9 % (0.2-2.0); Eosinophils Percent Auto 0.4 % (0.9-7.0); Hematocrit 47.4 % (36.0-48.0); Hemoglobin 16.4 g/dL (12.0-16.0); Immature Granulocytes Abs Auto 0.03 10^3/uL (0.00-0.03); Immature Granulocytes Pct Auto 0.3 % (0.0-0.5); Lymphocytes Absolute Auto 1.1 10^3/uL (1.2-3.8); Mean Corpuscular HGB Conc 34.6 g/dL (29.9-35.2); Mean Corpuscular Hemoglobin 31.4 pg (26.7-34.0); Mean Corpuscular Volume 90.8 fL (81.0-99.0); Mean Platelet Volume 10.5 fL (9.5-13.5); Monocytes Absolute Auto 0.7 10^3/uL (0.3-0.8); Monocytes Percent Auto 7.4 % (1.7-12.0); Neutrophils Absolute Auto 7.2 10^3/uL (1.4-6.5); Platelet Count 243 10^3/uL (150-450); Red Blood Count 5.22 10^6/uL (4.20-5.40); Red Cell Distribution Width 13.6 % (11.0-15.0); White Blood Count 9.1 10^3/uL (4.0-11.0)
[2024-12-07 14:11] LABS: Alanine Aminotransferase 25 U/L (14-59); Albumin Globulin Ratio 0.9; Albumin Level 3.2 g/dL (3.4-5.0); Alkaline Phosphatase 119 U/L (46-116); Anion Gap 15.5; Aspartate Amino Transferase 28 U/L (15-37); BUN Creatinine Ratio 19.3; Bilirubin Total 0.8 mg/dL (0.2-1.0); Carbon Dioxide 28.1 mmol/L (21.0-32.0); Chloride 100 mmol/L (98-107); Estimated GFR (African America 45 (>=60 mL/min/1.73m^2); Estimated GFR (Non-African Ame 37 (>=60 mL/min/1.73m^2); Globulin 3.5 g/dL; Glucose 112 mg/dL (74-106); Potassium 3.6 mmol/L (3.5-5.1); Sodium 140 mmol/L (136-145); Total Protein 6.7 g/dL (6.4-8.2)
== END 2024-12-07 12:50 | disposition home or self-care (01) ==
LOC: LAB 12:49
PROVIDERS: Visit Provider Student in an Organized Health Care Education/Training Program
DX: I48.20 Chronic atrial fibrillation, unspecified (principal)
CPT/HCPCS: 36415; 80053; 85025